=== PATIENT | female | born 1950 | race Asian ===

== ENCOUNTER 2017-08-13 00:03 | Emergency (ER) | payer MEDICARE ==
[~2017-08-13] VITALS: Ht 157.5 cm; Wt 54.0 kg
[2017-08-13] MEDS ORDERED: ASPI-1182 PO (00:12)
[2017-08-13] MEDS ORDERED: LOSA25TA21 PO (00:12)
[2017-08-13] MEDS ORDERED: SIMV-261 PO (00:12)
[2017-08-13] MEDS ORDERED: METF500T4 PO (00:12)
[2017-08-13 00:17] LABS: GLUCOSE,POINT OF CARE 130 MG/DL (70-110)
[2017-08-13 00:46] LABS: ADD UA MICROSCOPIC YES; APPEARANCE,URINE CLEAR (CLEAR); GLUCOSE, URINE (UA) NEGATIVE (NEGATIVE); KETONES,URINE NEGATIVE (NEGATIVE); LEUKOCYTE ESTERASE ,URINE MODERATE (NEGATIVE); OCCULT BLOOD,URINE LARGE (NEGATIVE); PROTEIN,URINE NEGATIVE (NEGATIVE)
[2017-08-13 01:10] LABS: SQUAMOUS EPITHELIAL CELL,UR Few /LPF (None Seen)
[2017-08-13] MEDS ORDERED: TraMADol HCL 50 MG TABLET PO ONE (02:15)
[2017-08-13 02:41] VITALS: BP 123/71
== END 2017-08-13 02:51 | disposition home or self-care (01) ==
LOC: EMS 00:04
DX: N39.0 Urinary tract infection, site not specified (principal); L29.9 Pruritus, unspecified; E11.9 Type 2 diabetes mellitus without complications; I10 Essential (primary) hypertension
CPT/HCPCS: 82962; 87086; 99284

== ENCOUNTER 2021-03-08 10:44 | Emergency (ER) | payer MEDICARE ==
[~2021-03-08] VITALS: Ht 157.5 cm; Wt 59.1 kg
[~2021-03-08 10:44] MED LIST: ASPI-1444 PO; LOSA25TA21 PO; METF-960 PO; SIMV-261 PO
[2021-03-08] MEDS ORDERED: METO50 PO (10:55)
[2021-03-08] MEDS ORDERED: LOSA50TA37 PO (10:55)
[2021-03-08] MEDS ORDERED: ATOR10TA84 PO (10:55)
[2021-03-08] MEDS ORDERED: APIX5TAB PO (10:55)
[2021-03-08] MEDS ORDERED: IBUPROFEN 600 MG TABLET PO ONE (13:15)
[2021-03-08 13:50] VITALS: BP 138/84
== END 2021-03-08 13:50 | disposition home or self-care (01) ==
LOC: EMS 11:24
DX: S20.211A Contusion of right front wall of thorax, initial encounter (principal); M54.2 Cervicalgia; I48.91 Unspecified atrial fibrillation; E78.00 Pure hypercholesterolemia, unspecified; I10 Essential (primary) hypertension; V49.9XXA Car occupant (driver) (passenger) injured in unspecified traffic accident, initial encounter; Y93.89 Activity, other specified; Y92.89 Other specified places as the place of occurrence of the external cause; Y99.8 Other external cause status
CPT/HCPCS: 70450; 71111; 99284